=== PATIENT | male | born 1975 | race Caucasian/White ===

== ENCOUNTER 2018-06-15 15:48 | Emergency (ER) | payer MEDICAID ==
[2018-06-15] MEDS: ACETAMINOPHEN 325 MG TAB PO (19:18)
[2018-06-15] MEDS: ONDANSETRON (ODT) 4 MG TAB ODT (19:20)
== END 2018-06-15 20:35 | disposition home or self-care (01) ==
LOC: FTE 15:48
DX: R51 Headache (principal); R11.0 Nausea
CPT/HCPCS: 70450; 82962; 99284-25

== ENCOUNTER 2018-12-10 10:15 | Emergency (ER) | payer BC, OTHER, MEDICAID ==
[2018-12-10] MEDS: LORAZEPAM 1 MG TAB PO (10:41)
[2018-12-10 10:52] LABS: ADD MAN DIFF? NO
[2018-12-10 10:54] LABS: WHITE BLOOD COUNT 8.4 10^3/ul (4.8-10.8)
[2018-12-10 10:54] LABS: BASOPHILS % 0.4 % (0.0-2.0); EOSINOPHILS # 0.1 10^3/ul (0.0-0.5); EOSINOPHILS % 1.1 % (0.0-7.0); HEMATOCRIT 45.6 % (42.0-52.0); HEMOGLOBIN 15.1 g/dl (14.0-18.0); LYMPHOCYTES # 3.7 10^3/ul (0.8-2.9); LYMPHOCYTES % 44.3 % (15.0-51.0); MEAN CORPUSCULAR HEMOGLOBIN 29.8 pg (29.0-33.0); MEAN CORPUSCULAR HGB CONC 33.1 g/dl (32.0-37.0); MEAN CORPUSCULAR VOLUME 90.1 fl (82.0-101.0); MEAN PLATELET VOLUME 10.3 fl (7.4-10.4); MONOCYTE # 0.6 10^3/ul (0.3-0.9); PLATELET COUNT 260 10^3/UL (140-415); RED BLOOD COUNT 5.06 10^6/ul (4.70-6.10); RED CELL DISTRIBUTION WIDTH 13.1 % (11.5-14.5)
[2018-12-10 11:23] LABS: ANION GAP 10 (5-13); BLOOD UREA NITROGEN 13 mg/dl (7-20); CALCIUM 9.7 mg/dl (8.4-10.2); CARBON DIOXIDE 26 mmol/L (21-31); CHLORIDE 104 mmol/L (97-110); CREATININE 0.89 mg/dl (0.61-1.24); Estimated GFR > 60 mL/min (>60); GLUCOSE 101 mg/dl (70-220); POTASSIUM 4.1 mmol/L (3.5-5.1); SODIUM 140 mmol/L (135-144)
[2018-12-10 11:34] LABS: TROPONIN-I < 0.012 ng/ml (0.000-0.120)
== END 2018-12-10 11:55 | disposition home or self-care (01) ==
LOC: E/R 10:15
DX: F41.9 Anxiety disorder, unspecified (principal); R40.2142 Coma scale, eyes open, spontaneous, at arrival to emergency department; R40.2362 Coma scale, best motor response, obeys commands, at arrival to emergency department; R40.2252 Coma scale, best verbal response, oriented, at arrival to emergency department; R07.9 Chest pain, unspecified
CPT/HCPCS: 36415; 71045; 80048; 84484; 85025; 93005; 99285-25